=== PATIENT | male | born 1990 | race Asian ===

== ENCOUNTER 2019-05-14 12:40 | Emergency (ER) | payer OTHER ==
--- NOTE | 2019-05-14 13:46 | ED ---
Laceration/Wound HPI - HPI Summary HPI Summary: Patient is a right-handed 28-year-old male who presents to the emergency department today with a laceration on his left second finger. Patient states one hour ago he was cutting bread when the knife slipped and cut his finger. He describes the pain as 3 out of 10 sharp pain he has not taken anything to alleviate symptoms. Patient has full range of motion and is neurovascularly intact. Patient has no history of anticoagulant use. He is not sure if his tetanus vaccination is up-to-date. Patient denies chest pain, shortness of breath, abdominal pain. - History of Current Complaint Stated Complaint: LAC ON LEFT INDEX FINGER PER PT Time Seen by Provider: 05/14/19 13:00 Hx Obtained From: Patient Mechanism of Injury: Sharp/Blunt Trauma Onset/Duration: Sudden Onset Aggravating: Movement Alleviating: Nothing Timing: Constant Onset Severity: Mild Current Severity: Mild Pain Intensity: 4 Pain Scale Used: 0-10 Numeric Associated Signs & Symptoms: Pain - 4/10 pain to left second finger laceration Related Hx: Dominant Hand (Right) - Allergy/Home Medications Allergies/Adverse Reactions: Allergies Allergy/AdvReac Type Severity Reaction Status Date / Time No Known Allergies Allergy Verified 05/14/19 12:44 Home Medications: Home Medications NK [No Home Medications Reported] 05/14/19 [History Confirmed 05/14/19] PMH/Surg Hx/FS Hx/Imm Hx Previously Healthy: Yes Endocrine/Hematology History: Denies: Hx Anticoagulant Therapy Infectious Disease History: No Infectious Disease History: Reports: Traveled Outside the [place] in Last 30 Days - Social History Occupation: Student Lives: Alone Alcohol Use: None Substance Use Type: Reports: None Smoking Status (MU): Never Smoked Tobacco Review of Systems Constitutional: Negative Cardiovascular: Negative Respiratory: Negative Gastrointestinal: Negative Positive: Other - Laceration to left second finger All Other Systems Reviewed And Are Negative: Yes Physical Exam - Summary Physical Exam Summary: Right index finger has a 1.5 cm laceration on the anterior lateral aspect of the finger which is about 3 mm deep Triage Information Reviewed: Yes Vital Signs On Initial Exam: Initial Vitals Temp Pulse Resp BP Pulse Ox 97.8 F 58 18 132/82 100 05/14/19 12:43 05/14/19 12:43 05/14/19 12:43 05/14/19 12:43 05/14/19 12:43 Vital Signs Reviewed: Yes Appearance: Positive: Well-Appearing, Well-Nourished Skin: Positive: Warm, Skin Color Reflects Adequate Perfusion Respiratory/Lung Sounds: Positive: Clear to Auscultation, Breath Sounds Present Cardiovascular: Positive: Normal, S1, S2 Abdomen Description: Positive: Nontender Bowel Sounds: Positive: Present Neurological: Positive: Normal, Sensory/Motor Intact, Alert, Oriented to Person Place, Time Psychiatric: Positive: Normal, Affect/Mood Appropriate AVPU Assessment: Alert Procedures - Sedation Patient Received Moderate/Deep Sedation with Procedure: No - Laceration/Wound Repair 1 Location: upper extremity Description: Linear Anesthesia: Local, 1.0% Length, Depth and Shape: 1.5cm long, 3mm deep Betadine Prep?: Yes Irrigated w/ Saline (ccs): 500 - Done by civil cadd technician Laceration/Wound Explored: clean Closure: Single Layer Debridement: none Suture Type: Nylon Number of Sutures: 3 - simple interrupted 4-0 nylon Layer Closure?: No Sterile Dressing Applied?: Yes Diagnostics - Vital Signs Vital Signs Temp Pulse Resp BP Pulse Ox 05/14/19 12:43 97.8 F 58 18 132/82 100 - Laboratory Lab Statement: Any lab studies that have been ordered have been reviewed, and results considered in the medical decision making process. Laceration Repair Course/Dx - Course Course Of Treatment: Patient was evaluated in the emergency department today for a laceration to his left second finger. Patient was given updated T Vaccine due to not knowing his vaccination history. Patient's wound was irrigated with 500 cc of normal saline emergency room system support technician. Patient's, risks, and benefits explained to patient and verbal informed consent was obtained. Anesthesia was performed with 3ml of 1% lidocaine without epinephrine. The patient was prepped and draped in usual fashion. Using 3 simple interrupted 4-0 nylon sutures the wound was approximated. This was a simple laceration repair. Patient tolerated procedure well,hemostasis achieved. Patient's left second finger was dressed and splinted. Patient was instructed as to dressing care and follow-up instructions to [facility] for suture removal in 8-10 days. Pt was instructed to return to regular activity as tolerated. - Clinical Impression Provider Diagnoses: Laceration of left index finger Discharge ED - Sign-Out/Discharge Documenting (check all that apply): Patient Departure - Discharge Plan Condition: Stable Disposition: HOME Patient Education Materials: Care For Your Stitches (ED), Finger Laceration (ED ) Referrals: [facility] [place] - Dmitri GARCIA [Primary Care Provider] - Additional Instructions: Keep dressings dry for 24 hours. After 24 hours you may clean the wound with warm soap and water gently. After cleaning, pat the wound dry, then apply new dressing. Keep your splint on for 3 days to allow proper wound approximation ( even while sleeping). Go to the [facility] clinic in 10 days for suture removal. Return to the emergency Department immediately if there are any new or worsening symptoms. Return to normal activity as tolerated. - Billing Disposition and Condition Condition: STABLE Disposition: Home - Attestation Statements Provider Attestation: I was available for consultation for this patient. I did not evaluate the patient or participate in any medical decision making or disposition decisions unless I am specifically named in the chart as having consulted on the patient. If I have consulted on the patient, please see my own ED note on the patient encounter. Sean Ruvalcaba MD
[2019-05-14] MEDS ORDERED: Tetan/Diph/Pertus SYR(Tdap)* 0.5 ML SYR(BOOSTRIX) use SYR contains LATEX IM ONE (13:55)
[2019-05-14 14:57] VITALS: BP 119/67
== END 2019-05-14 14:56 | disposition home or self-care (01) ==
LOC: ED 12:40
DX: S61.211A Laceration without foreign body of left index finger without damage to nail, initial encounter (principal); W26.0XXA Contact with knife, initial encounter; Y93.G1 Activity, food preparation and clean up; Y92.9 Unspecified place or not applicable
CPT/HCPCS: 12001; 90471; 90715; 99282